=== PATIENT | male | born 1950 | race Caucasian/White ===

== ENCOUNTER 2017-05-26 12:39 | Day surgery (SDC) | payer MEDICARE, OTHER ==
[~2017-05-26 12:39] MED LIST: BYST10TA2 PO; FISHCAP4 PO; LORTA5 PO; OSTETAB PO; PACE200T4 PO; POTA75TA PO; TAB-TAB PO; XARE15TA PO
[2017-05-26] MEDS ORDERED: AMIO200T PO (12:55)
[2017-05-26] MEDS ORDERED: MULTTAB67 PO (12:55)
[2017-05-26] MEDS ORDERED: ASPI81CH6 CHEW (12:55)
[2017-05-26] MEDS ORDERED: AZIL40TA PO (12:55)
[2017-05-26] MEDS ORDERED: OSTETAB2 (12:55)
[2017-05-26 12:58] VITALS: BP 150/82; PULSE 75; RESP 20; TEMP 98.2; O2SAT 95
[2017-05-26 14:35] VITALS: BP 149/87; PULSE 78; RESP 20; TEMP 98.5; O2SAT 95
--- NOTE | 2017-05-26 14:47 | PD.RAD ---
Post Procedure Progress Note Pre Procedure Diagnosis: (1) Effusion, right hip Post Procedure Diagnosis: (1) Effusion, right hip Procedure Date: May 26, 2017 Supervising Radiologist: Jeremias Barnes Proceduralist/Assist: RT Eric(R), RT Christiana(R) Anesthesia: Local Plan of Activity Patient to Unit: Nursing Unit Patient Condition: Good See PACS Report for procedural detail/treatment Drainage Procedure Procedure 1 Imaging Guidance: Ultrasound Side: Right Procedure Type: Aspiration (Right hip) Fluid Removal (CCs): 7 Fluid Description: Blossom Miller Scott D. MD May 26, 2017 14:47
--- NOTE | 2017-05-26 17:01 | RADRPT ---
EXAM DATE/TIME: 05/26/2017 15:08 [facility] COMPARISON: No previous studies available for comparison. INDICATIONS : Patient with right hip effusion in need of aspiration. MEDICAL HISTORY : HTN, A-Fib, Colon cancer, Osteoarthritis SURGICAL HISTORY : Left hip replacement, Colon resection, Lumbar surgery ENCOUNTER: Initial ACUITY: 1 month PAIN SCORE: 8/10 LOCATION: Right Hip FLUORO TIME: IMAGE SERIES: 0 DEVICE(S): 18 gauge needle was placed into the right hip joint. With ultrasound guidance RESPONSE: Pre procedure pain level was 8/10 Post procedure pain level was 8/10 FLUID: Total volume of7 cc of clear yellow fluid was removed. Fluid specimen was submitted to the lab for evaluation. PROCEDURE : 1. Fluoroscopically guided right hip aspiration. The risks, benefits and alternatives to the procedure were explained and verbal and written consent w as obtained. The site was prepped in sterile fashion. Full sterile technique was used, including ca p, mask, sterile gloves and gown and a large sterile sheet. Hand hygiene and 2% chlorhexidine and/or betadine/alcohol prep was utilized per protocol for cutaneous antisepsis. The skin and subcutaneous tissues were infiltrated with local anesthetic solution. Using ultrasound guidance, an 18 gauge Barrios blunt needle was advanced down into a complex periarti cular/intra-articular collection. 7 cc of straw colored fluid was aspirated. The patient tolerated the procedure well and there were no complications. CONCLUSION: Uncomplicated aspiration as above. Jeremias Barnes MD on May 26, 2017 at 16:57 Board Certified Radiologist. This report was verified electronically.
== END 2017-05-26 15:01 | disposition home or self-care (01) ==
LOC: HROP 12:39 → HRIP 12:44 → HROP 15:01
PROVIDERS: ATTEND Nurse Practitioner Family
DX: M25.451 Effusion, right hip (principal); M17.11 Unilateral primary osteoarthritis, right knee; I48.91 Unspecified atrial fibrillation; I10 Essential (primary) hypertension; Z96.642 Presence of left artificial hip joint; Z85.038 Personal history of other malignant neoplasm of large intestine
CPT/HCPCS: 20610

== ENCOUNTER → 2017-06-22 | Outpatient (CLI) | payer MEDICARE, OTHER ==
[~2017-06-22] MED LIST changes: +AMIO200T PO; +ASPI81CH6 CHEW; +AZIL40TA PO; -BYST10TA2 PO; -FISHCAP4 PO; -LORTA5 PO; +MULTTAB67 PO; -OSTETAB PO; +OSTETAB2; -PACE200T4 PO; -POTA75TA PO; -TAB-TAB PO; -XARE15TA PO
[2017-06-22 10:02] LABS: AUTOMATED NEUTROPHIL # 3.6 TH/MM3 (1.8-7.7); BASOPHIL % 0.5 % (0.0-2.0); EOSINOPHIL # 0.2 TH/MM3 (0-0.4); EOSINOPHIL % 3.6 % (0.0-4.0); HEMATOCRIT 44.7 % (39.0-51.0); HEMO FLAGS DIFF FINAL; LYMPH % 16.6 % (9.0-44.0); LYMPHOCYTE # 0.9 TH/MM3 (1.0-4.8); MEAN CELL VOLUME 89.7 FL (80.0-100.0); MEAN CORPUSCULAR HEMOGLOBIN 30.5 PG (27.0-34.0); MONO % 11.7 % (0.0-8.0); NEUT % 67.6 % (16.0-70.0); PLATELET COUNT 172 TH/MM3 (150-450); RED BLOOD COUNT 4.98 MIL/MM3 (4.50-5.90); RED CELL DISTRIBUTION WIDTH 14.8 % (11.6-17.2); WHITE BLOOD COUNT 5.3 TH/MM3 (4.0-11.0)
[2017-06-22 10:09] LABS: APTT (PATIENT) 23.5 SEC (24.3-30.1); INTERNATIONAL NORMALIZED RATIO 1.1 RATIO; PROTHROMBIN TIME - PATIENT 10.7 SEC (9.8-11.6)
[2017-06-22 10:14] LABS: BLOOD, URINE NEG (NEG); GLUCOSE,URINE NEG (NEG); KETONE, URINE NEG (NEG); NITRITE,URINE NEG (NEG); URINE COLOR YELLOW (YELLW/STRAW)
[2017-06-22 10:17] LABS: COMMENT (UR) CULT NOT INDICATED; CULTURE IF INDICATED CULT NOT INDICATED
[2017-06-22 10:21] LABS: WESTERGREN SEDIMENTATION RATE 1 mm/hr (0-20)
[2017-06-22 10:23] LABS: ANION GAP 6 MEQ/L (5-15); AST (GOT) 26 U/L (15-37); BICARBONATE 29.4 MEQ/L (21.0-32.0); BLOOD UREA NITROGEN 25 MG/DL (7-18); CHLORIDE 105 MEQ/L (98-107); GLOMERULAR FILTRATION RATE 53 ML/MIN (>89); GLUCOSE,FASTING 96 MG/DL (74-99); POTASSIUM 3.7 MEQ/L (3.5-5.1); SODIUM (NA) 140 MEQ/L (136-145)
[2017-06-22 10:24] LABS: ALT (GPT) 36 U/L (12-78)
[2017-06-22 10:26] LABS: ALKALINE PHOSPHATASE 80 U/L (45-117); TOTAL BILIRUBIN ADULT 0.6 MG/DL (0.2-1.0)
--- NOTE | 2017-06-22 12:05 | RADRPT ---
EXAM DATE/TIME: 06/22/2017 11:42 [facility] COMPARISON: No previous studies available for comparison. INDICATIONS : Evalaute for pneumonia, pneumothorax or communicable disease. Preop chest for total hip replacement o n 07/08/17 MEDICAL HISTORY : None. SURGICAL HISTORY : None. ENCOUNTER: Initial ACUITY: 1 day PAIN SCORE: 0/10 LOCATION: Bilateral chest FINDINGS: The cardiac silhouette is enlarged in transverse diameter. The lungs are free of acute parenchymal op acity. No effusions are identified. The aortic knob is prominent with tortuosity of the descending th oracic aorta. There is eventration of the right hemidiaphragm. CONCLUSION: 1. Cardiomegaly. No acute pulmonary disease. Jean Arnett MD on June 22, 2017 at 12:02 Board Certified Radiologist. This report was verified electronically.
--- NOTE | 2017-06-23 14:36 | EKG ---
Date Performed: 06/22/2017 Time Performed: 09:30:50 PTAGE: 66 years EKG: Sinus rhythm NORMAL ECG Compared to prior tracing no significant change PREVIOUS TRACING : 07/25/13 DOCTOR: Laura Naylor Interpretating Date/Time 06/23/2017 14:31:00
== END ==
LOC: CPRE 09:00
PROVIDERS: ATTEND Orthopaedic Surgery
DX: Z01.812 Encounter for preprocedural laboratory examination (principal); Z01.811 Encounter for preprocedural respiratory examination; Z01.810 Encounter for preprocedural cardiovascular examination; M79.609 Pain in unspecified limb; M25.50 Pain in unspecified joint; M16.11 Unilateral primary osteoarthritis, right hip
CPT/HCPCS: 36415; 71020; 80053; 81001; 85025; 85610; 85652; 85730; 93005

== ENCOUNTER 2017-07-08 05:11 | Inpatient (IN) | payer MEDICARE, OTHER ==
[~2017-07-08] VITALS: Ht 177.8 cm; Wt 124.5 kg
[2017-07-08] MEDS ORDERED: ceFAZolin 2 GM PREMIX 50 ML ONE (05:44)
[2017-07-08] MEDS ORDERED: VANCOMYCIN HCL 1000 MG VIAL ONE (05:44)
[2017-07-08] MEDS ORDERED: DEXAMETHASONE SOD PHOS 20 MG/5 ML VIAL ONE (05:44)
[2017-07-08] MEDS ORDERED: SODIUM CHLOR 0.9% 250 ML INJ 250 ML ONE (05:44)
[2017-07-08] MEDS ORDERED: TRANEXAMIC ACID IV SCH ×2 (05:45→10:00)
[2017-07-08] MEDS ORDERED: POVIDONE IODINE 7.5% SCRUB 118 ML BOTTLE TOPICAL SCH (05:45)
[2017-07-08] MEDS ORDERED: POVIDONE IODINE 5% (ANTISEPSIS KIT) 4 APPLICATIONS EACH NARE PRN (05:45)
[2017-07-08] MEDS ORDERED: EXPAREL PERI-ARTICULAR INJECTION (TOTAL VOL. 60 ML) P-ARTICULR SCH ×2 (05:45)
[2017-07-08] MEDS ORDERED: SODIUM CHLORIDE 0.9% IV SCH ×2 (05:45→10:00)
[2017-07-08] MEDS ORDERED: SODIUM CHLORID 0.9% 500 ML IV PRN (05:45)
[2017-07-08] MEDS ORDERED: CHLORHEXIDINE GLUCONATE 2 % 1 PACK (2 CLOTHS) TOPICAL PRN (05:45)
[2017-07-08] MEDS ORDERED: ceFAZolin 2 GM PREMIX 50 ML IV SCH (05:45)
[2017-07-08] MEDS ORDERED: VANCOMYCIN 1000 MG/NS 250 ML (for <70 kg) IV SCH ×2 (05:45)
[2017-07-08] MEDS ORDERED: LACTATED RINGER'S 1000 ML IV PRN (05:45)
[2017-07-08] MEDS ORDERED: METOPROLOL TARTRATE 25 MG TAB PO PRN (05:45)
[2017-07-08] MEDS ORDERED: GENTAMICIN SULFATE 80 MG/2 ML VIAL ONE (06:17)
--- NOTE | 2017-07-08 06:52 | HHI.DCPOC ---
Discharge Care Plan Diagnosis: (1) Osteoarthritis of right hip (2) Status post total hip replacement, right Your Health Problems Are: Difficulty with ADL Goals to Promote Your Health * To prevent worsening of your condition and complications * To maintain your health at the optimal level Directions to Meet Your Goals Take your medications as prescribed Follow your dietary instruction Follow activity as directed Keep your appointments as scheduled Take your immunizations and boosters as scheduled If your symptoms worsen call your PCP, if no PCP go to Urgent Care Center or Emergency Room Smoking is Dangerous to Your Health. Avoid second hand smoke Call the 24-hour hour crisis hotline for domestic abuse at Alfredo Mccoy Jul 08, 2017 06:52
--- NOTE | 2017-07-08 06:53 | HHI.FF ---
Face to Face Verification Diagnosis: (1) Osteoarthritis of right hip (2) Status post total hip replacement, right Physical Therapy Gait training, Transfer training, bed to chair Hip: Total hip Right LE Weight Bearing: WB as tolerated Right LE Range of Motion: Active ROM Nursing Nursing: Tamiko teaching, Dressing changes Dressing Changes: Daily dressing change I have seen patient Jean Paz on 07/08/17. My clinical findings support the need for the requested home health care services because: Limited ability to care for self High risk of falls I certify that my clinical findings support that this patient is homebound because: Post-op weakness Unsteady gait/balance Alfredo Mccoy Jul 08, 2017 06:53
[2017-07-08] MEDS ORDERED: WALKER WHEELS/F1 MIS (06:55)
[2017-07-08] MEDS ORDERED: COMMODE 3-IN-11 MIS (06:55)
[2017-07-08] MEDS ORDERED: PROPOFOL 200 MG/20 ML AMP ONE (08:19)
--- NOTE | 2017-07-08 08:51 | PD.OP ---
cc: Huey Thomas MD Operative Report Date of Surgery: Jul 08, 2017 Preoperative Diagnosis: Right hip severe osteoarthritis Postoperative Diagnosis: Same Procedure: Right total hip arthroplasty Anesthesia: Spinal Surgeon: Huey Thomas Radiator Core Tester(s): SESAR Bermeo The surgical procedure was assisted by my Advanced Registered Nurse Practitioner. My PNP presence was necessary throughout this case for the manipulation and positioning of the surgical extremity. My PNP was assisting me throughout the duration of this procedure. The skill set of an Advance Registered Nurse Practitioner was medically necessary to complete this procedure. During the surgical case, the rn surgical pcu was working at the back table and the Advance Registered Nurse Practitioner was directly assisting me. Operation and Findings: IMPLANT DESCRIPTION: 1. Mcdermott Gription Cup, acetabular size 58. 2. Mcdermott AltrX polyethylene, neutral. 4. Corail femoral stem size 14, no collar, high offset. 5. Femoral head/neck ceramic, 36, +1.5. ESTIMATED BLOOD LOSS: 300 cc. JUSTIFICATION FOR PROCEDURE: The patient has end-stage osteoarthritis to the hip. There is an attached conservative measures pathway form in the chart that describes the nonoperative measures that were undertaken prior to consideration of surgical management. The patient understood the risks and benefits of surgical management. See my office notes for further details. PROCEDURE: The patient was brought back to the operative theatre. Adequate anesthesia was obtained. The patient received intravenous vancomycin and Ancef. The patient was carefully placed on the operative table. The lower extremity was prepped and draped in the usual sterile fashion. Fluoroscopic images were obtained. We made a standard anterior incision over the hip. We dissected through the TFL fascia, exposing the anterior capsule. Arthrotomy was performed in a T-shaped fashion. The capsule was tagged with a #2 FiberWire. There was a large clear effusion noted. End-stage arthritis was identified. Osteotomy was performed through the femoral neck exposing the acetabulum. Remnants of the labrum were resected and osteophytes were removed. We sequentially reamed the acetabulum. We trialed the hip and placed the final cup into position. This was done under fluoroscopic guidance to obtain the appropriate inclination and anteversion. A manhole cover was placed into the acetabular component. We then placed the final polyethylene into position and confirmed that it was well seated. Capsular attachments on the calcar and the inner aspect of the greater trochanter were resected. On the proximal aspect of the femur we used a rongeur , box osteotome, canal finder, sequential broaches and lateralizing rasp. We calcar planed the proximal femur. Then thoroughly irrigated the wound. We trialed the hip with the appropriate size stem. We placed the final stem in to position and trialed again. The hip was stable while it was externally rotated 70 degrees when the leg was lowered to the floor. The final head was applied, and final fluoroscopic images were obtained. The wound was thoroughly irrigated again. Interarticular injection of liposomal bupivacaine was given. The capsule was closed with #2 FiberWire and #1 Vicryl. The deep fascia was closed with a #2 Stratafix, followed by 2-0 Vicryl in the skin and Dermabond dressing. Postop plan is to weight-bear as tolerated. DVT prophylaxis will be performed with Te, TEREZA burris, early mobilization, and Lanoxin followed by aspirin. Huey Thomas MD Jul 08, 2017 08:51
[2017-07-08] MEDS ORDERED: ASPI-146 PO (08:53)
[2017-07-08] MEDS ORDERED: ENOX40IN SQ (08:53)
[2017-07-08] MEDS ORDERED: NORC5TAB PO (08:53)
[2017-07-08] MEDS ORDERED: MAGNESIUM HYDROXIDE SUSP 30 ML CUP PO PRN (09:00)
[2017-07-08] MEDS ORDERED: diphenhydrAMINE HCL 50 MG/ML VIAL IV PUSH PRN (09:00)
[2017-07-08] MEDS ORDERED: ALUMINUM/MAGNESIUM/SIMETH 30 ML CUP PO PRN (09:00)
[2017-07-08] MEDS ORDERED: BISACODYL 10 MG SUPP RECTAL PRN (09:00)
[2017-07-08] MEDS ORDERED: ZOLPIDEM TARTRATE 5 MG TAB PO PRN (09:00)
[2017-07-08] MEDS ORDERED: Post-op Orders (for Pharmacy) XX ONE (09:00)
[2017-07-08] MEDS ORDERED: ONDANSETRON HCL 4 MG/2 ML VIAL IVP PRN (09:00)
[2017-07-08] MEDS ORDERED: ACETAMINOPHEN/HYDROcodone 325 MG/5 MG TAB PO PRN (09:00)
[2017-07-08] MEDS ORDERED: NALOXONE HCL 0.4 MG/ML AMP IV PUSH PRN (09:00)
--- NOTE | 2017-07-08 09:22 | RADRPT ---
EXAM DATE/TIME: 07/08/2017 07:37 [facility] COMPARISON: No previous studies available for comparison. INDICATIONS : Right total hip arthroplasty. MEDICAL HISTORY : Unobtainable. SURGICAL HISTORY : Left total hip arthrplasty. ENCOUNTER: Initial ACUITY: 1 day PAIN SCORE: Non-responsive. LOCATION: Right hip FINDINGS: The patient is status post a total hip arthroplasty with a bipolar prosthesis. Prosthesis is well-sea yomi. Alignment is anatomic. A fracture is not appreciated. CONCLUSION: Anatomic alignment. Feliciano Rocha MD FACR Feliciano Rocha MD FACR on July 08, 2017 at 9:19 Board Certified Radiologist. This report was verified electronically.
[2017-07-08] MEDS: SODIUM CHLOR 0.9% 1000 ML INJ 1,000 ML IV SCH ×2 (09:30→21:00)
--- NOTE | 2017-07-08 10:41 | RADRPT ---
EXAM DATE/TIME: 07/08/2017 09:49 [facility] COMPARISON: No previous studies available for comparison. INDICATIONS : Post op right hip surgery MEDICAL HISTORY : None. SURGICAL HISTORY : None. ENCOUNTER: Initial ACUITY: 1 day PAIN SCORE: 0/10 LOCATION: Right hip and pelvis FINDINGS: The patient is status post a total hip arthroplasty with a bipolar prosthesis. Prosthesis is well-sea yomi. Alignment is anatomic. A fracture is not appreciated. CONCLUSION: Anatomic alignment. Feliciano Rocha MD FACR on July 08, 2017 at 10:38 Board Certified Radiologist. This report was verified electronically.
[2017-07-08] MEDS: AMIODARONE 200 MG TAB PO SCH (11:00)
[2017-07-08] MEDS ORDERED: AZILSARTAN PO SCH (12:00)
[2017-07-08] MEDS ORDERED: CHLORTHALIDONE PO SCH (12:00)
[2017-07-08] MEDS ORDERED: MORPHINE SULFATE 2 MG/ML INJ IV PUSH PRN (12:15)
[2017-07-08] MEDS ORDERED: DO NOT ADM ANY ANTICOAGULANT DRUGS PRN (14:45)
[2017-07-08 16:00] VITALS: BP 126/69; PULSE 68; RESP 19; TEMP 95.6; O2SAT 94
[2017-07-08 16:13] VITALS: O2SAT 95
[2017-07-08] MEDS: ACETAMINOPHEN/HYDROcodone 325 MG/5 MG TAB PO PRN ×2 (17:54→22:57)
[2017-07-08 18:03] VITALS: O2SAT 95
[2017-07-08 20:00] VITALS: BP 133/69; PULSE 85; RESP 22; TEMP 98.6; O2SAT 94
[2017-07-09] VITALS: BP 117/64; PULSE 85; RESP 22; TEMP 98.4; O2SAT 94
[2017-07-09] MEDS: SODIUM CHLOR 0.9% 1000 ML INJ 1,000 ML IV SCH (03:40)
[2017-07-09 04:00] VITALS: BP 118/63; PULSE 70; RESP 22; TEMP 97.3; O2SAT 96
[2017-07-09] MEDS: ACETAMINOPHEN/HYDROcodone 325 MG/5 MG TAB PO PRN ×2 (06:07→13:07)
[2017-07-09 06:31] LABS: HEMATOCRIT 38.4 % (39.0-51.0); MEAN CELL VOLUME 88.4 FL (80.0-100.0); MEAN CORPUSCULAR HEMOGLOBIN 30.5 PG (27.0-34.0); MEAN CORPUSCULAR HGB CONC 34.4 % (32.0-36.0); PLATELET COUNT 171 TH/MM3 (150-450); RED BLOOD COUNT 4.35 MIL/MM3 (4.50-5.90); RED CELL DISTRIBUTION WIDTH 14.5 % (11.6-17.2); REVIEW FLAG FINAL; WHITE BLOOD COUNT 9.9 TH/MM3 (4.0-11.0)
[2017-07-09 07:34] VITALS: BP 113/63; PULSE 50; RESP 19; TEMP 97.6; O2SAT 94
[2017-07-09] MEDS ORDERED: DEXAMETHASONE SOD PHOS 20 MG/5 ML VIAL IV ONE (07:45)
[2017-07-09] MEDS ORDERED: ENOXAPARIN SODIUM 40 MG/0.4 ML SYRINGE SQ SCH (08:00)
[2017-07-09] MEDS: AMIODARONE 200 MG TAB PO SCH (08:29)
[2017-07-09 11:37] VITALS: BP 126/59; PULSE 72; RESP 19; TEMP 97.5; O2SAT 95
--- NOTE | 2017-07-09 13:03 | PD.ORT.PN ---
Subjective Post Op Day #: 1 Subjective Remarks Patient OOB in chair with minimal pain to the right hip. Patient states he is having less pain after surgery than compared to the pain he had prior to surgery. Patient has been ambulatory and is requesting to go home today with home health. Objective Vitals Vital Signs Date Time Temp Pulse Resp B/P (MAP) Pulse Ox O2 Delivery O2 Flow Rate FiO2 07/09/17 11:37 97.5 72 19 126/59 (81) 95 07/09/17 07:34 97.6 50 19 113/63 (80) 94 07/09/17 04:00 97.3 70 22 118/63 (81) 96 07/09/17 00:00 98.4 85 22 117/64 (81) 94 07/08/17 20:00 98.6 85 22 133/69 (90) 94 07/08/17 18:03 95 21 07/08/17 16:13 95 21 07/08/17 16:00 95.6 68 19 126/69 (88) 94 I/O 07/08/17 07/08/17 07/08/17 07/09/17 07/09/17 07/09/17 07:00 15:00 23:00 07:00 15:00 23:00 Intake Total 1237.34 ml 960 ml Output Total 300 ml 1350 ml Balance 937.34 ml -390 ml Intake Oral 960 ml IV Total 337.34 ml Other 900 ml Output Urine Total 1350 ml Estimated Blood Loss 300 ml # Voids 0 Result Diagram: 07/09/17 0600 Procedures Right GERMAINE Objective Remarks Patient's dressing is C/D/I. EHL/TA/G intact. 2+ pedal pulse. Calf is soft and nontender. + SILT. Assessment & Plan Ortho Post Op Day #: 1 Problem List: Assessment and Plan POD #1: Right GERMAINE 1. WBAT RLE 2. Lovenox followed by ASA for DVT prophylaxis 3. Ice to the right hip PRN 4. Stable for discharge home today with home health 5. F/U in the office with Dr. Thomas or SESAR Quintero as previously scheduled. Alfredo Mccoy Jul 09, 2017 13:03
[2017-07-09] MEDS ORDERED: DOCUSATE SODIUM 100 MG CAP PO SCH (21:00)
[2017-07-09] MEDS ORDERED: MULTIVITAMINS/MINERALS THERAPEUTIC TAB PO SCH (21:00)
--- NOTE | 2017-07-14 21:19 | HHI.DS ---
Discharge Summary Admission Date Jul 08, 2017 at 05:11 Discharge Date: Jul 09, 2017 Admitting Diagnosis OA of the right hip Status post total hip replacement, right Diagnosis: (1) Osteoarthritis of right hip Diagnosis: Principal ICD Codes: M16.11 - Unilateral primary osteoarthritis, right hip (2) Status post total hip replacement, right Diagnosis: Principal ICD Codes: Z96.641 - Presence of right artificial hip joint Procedures Right GERMAINE Brief History This is a 66 year old male patient with severe OA of the right hip PE at Discharge Patient's dressing is C/D/I. EHL/TA/G intact. 2+ pedal pulse. Calf is soft and nontender. + SILT. Hospital Course The patient was admitted to the hospital for severe OA of the right hip to have a right GERMAINE. The patient's surgery went well with no complications. The patient is WBAT. The patient is on a regular diet. The patient was placed on Lovenox followed by ASA for DVT prophylaxis. The patient was discharged home with home health and will f/u in the office with Dr. Thomas or SESAR Quintero as previously scheduled. Pt Condition on Discharge: Stable Discharge Disposition: Disch w/ Home Health Serv Discharge Instructions Diet Instructions: As Tolerated, No Restrictions Activities You Can Perform: Weight Bearing as Cyrus Activities to Avoid: Strenuous Activity Follow up Referrals: Orthopedics with Huey Thomas MD SNF/[facility]/ with NURSE SAND SYSTEM OPERATOR - [phone] New Medications: Aspirin DR (Ecotrin Regular Strength) 325 Mg Tabdr 325 MG PO DAILY for Prevent Blood Clot, #30 TAB 0 Refills Start Aspirin after Lovenox is completed. Commode 3-in-1 (Commode 3-in-1) 1 Mis Mis EA .ROUTE DIRECTED, #1 0 Refills Enoxaparin Inj (Enoxaparin Inj) 40 Mg/0.4 Ml Syr 40 MG SQ DAILY for Blood Clot Prevention, #10 SYRINGE 0 Refills Start Aspirin after Lovenox is completed. Hydrocodone-Acetaminophen ([place]) 5 Mg-325 Mg Tab 1-2 TAB PO Q4H PRN for PAIN, #60 TAB 0 Refills Walker with Front Wheels (Walker with Front Wheels) 1 Mis Mis EA .ROUTE DIRECTED, #1 0 Refills Continued Medications: Amiodarone (Amiodarone) 200 Mg Tab 200 MG PO DAILY for Regulate Heart Beat, #30 TAB 0 Refills Azilsartan-Chlorthalidone (Edarbyclor) 40-12.5 Mg Tab 1 TAB PO DAILY for Blood Pressure Management, #30 TAB 0 Refills Misc Natural Products (Osteo Bi-Flex Advanced Tr) 750 Mg-644 Mg-30 Mg-1 Mg-1.5 Mg Tab DAILY Multiple Vitamin (Multiple Vitamin) 1 Tab 1 TAB PO DAILY for Nutritional Supplement, TAB 0 Refills Discontinued Medications: Aspirin (Aspirin Low Dose) 81 Mg Chew 81 MG CHEW DAILY, TAB 0 Refills Alfredo Mccoy Jul 14, 2017 21:19
== END 2017-07-09 15:56 | disposition home health service (06) | DRG 470 ==
LOC: HSDI 05:11 → N06A 12:23
PROVIDERS: ADMIT Orthopaedic Surgery; ATTEND Orthopaedic Surgery
PROC: 0SR904A Replacement of Right Hip Joint with Ceramic on Polyethylene Synthetic Substitute, Uncemented, Open Approach (ICD-10-PCS; principal; 2017-07-08 06:41)
DX: M16.11 Unilateral primary osteoarthritis, right hip (principal); I48.91 Unspecified atrial fibrillation; E66.9 Obesity, unspecified; I10 Essential (primary) hypertension; Z68.39 Body mass index [BMI] 39.0-39.9, adult; Z79.01 Long term (current) use of anticoagulants
CPT/HCPCS: 73502; 76000; 85027; 86850; 86900; 86901; 94150; C1776; C9290; J0690; J1100; J1580; J1650; J3370; J7030; J7050; J7120